=== PATIENT | male | born 1950 | race Caucasian/White ===

== ENCOUNTER 2020-03-17 07:55 | Day surgery (SDC) | payer OTHER, MEDICARE ==
[~2020-03-17 07:55] MED LIST: Lactated Ringers 1,000 ML IV SCH; Lidocaine 1%/Sod Bicarbonate in NS 8.4% 1 ML Syringe IDERM PRN; Sodium Chloride 0.9% 10 ML Syringe FLUSH PRN
[2020-03-17] MEDS ORDERED: Propofol 200 MG/20 ML SDV ONE ×3 (08:26→11:00)
[2020-03-17] MEDS ORDERED: fentaNYL 100 MCG/2 ML SDV ONE (08:27)
--- NOTE | 2020-03-17 08:34 | PCM.PREANE ---
Preanesthetic Assessment - Procedure Proposed Procedure: EGD/Colonoscopy/skin tag - Anesthesia/Transfusion/Family Hx Anesthesia History: Prior Anesthesia Without Reaction Family History of Anesthesia Reaction: No Transfusion History: Prior Transfusion Without Reaction - Review of Systems General: No Symptoms Pulmonary: No Symptoms Cardiovascular: Dyspnea on Exertion Gastrointestinal: No Symptoms Neurological: Numbness (right hand fingers) Other: Reports: Easy Bruising, Diabetes (this am 98 @ 0722) - Physical Assessment NPO Status Date: 03/16/20 NPO Status Time: 00:00 Height: 1.7 m Weight: 126 kg ASA Class: 3 Mental Status: Alert & Oriented x3 Airway Class: Mallampati = 2 Dentition: Reports: [place]) Thyro-Mental Finger Breadths: 2 Mouth Opening Finger Breadths: 2 ROM/Head Extension: Limited/Partial ("a little sore") Lungs: Clear to Auscultation, Normal Respiratory Effort Cardiovascular: Regular Rate, Regular Rhythm - Lab Values: Laboratory Last Values SARS Virus RNA (PCR) Negative (NEGATIVE) 03/14/20 13:00 - Imaging/EKG Impressions: EKG SR Rate 95 PVCs - Allergies Allergies/Adverse Reactions: Allergies Allergy/AdvReac Type Severity Reaction Status Date / Time amoxicillin [From Augmentin] Allergy Hives Verified 03/14/20 16:27 aspirin Allergy Other Verified 03/14/20 16:27 clavulanic acid Allergy Hives Verified 03/14/20 16:27 [From Augmentin] lisinopril Allergy Rash Verified 03/14/20 16:27 losartan Allergy Rash Verified 03/14/20 16:27 - Blood Blood Available: No Product(s) Available: None - Anesthesia Plan Pre-Op Medication Ordered: Beta Doreen Beta Doreen: Carvedilol Med Last Dose Date: 03/17/20 Med Last Dose Time: 07:22 - Acknowledgements Anesthesia Type Planned: MAC Pt an Appropriate Candidate for the Planned Anesthesia: Yes Alternatives and Risks of Anesthesia Discussed w Pt/Guardian: Yes Pt/Guardian Understands and Agrees with Anesthesia Plan: Yes PreAnesthesia Questionnaire HEENT History: Reports: Impaired Vision Cardiovascular History: Reports: High Cholesterol, Hypertension Respiratory History: Reports: Asthma Gastrointestinal History: Reports: Diverticulosis Musculoskeletal History: Reports: Arthritis Endocrine/Metabolic History: Reports: Diabetes, Type II - Infectious Disease History Infectious Disease History: Reports: None - Past Surgical History HEENT Surgical History: Reports: Tonsillectomy Other HEENT Surgeries/Procedures: Deviated septum repair Cardiovascular Surgical History: Reports: Coronary Artery Bypass Other Cardiovascular Surgeries/Procedures: Triple bypass GI Surgical History: Reports: Colonoscopy Musculoskeletal Surgical History: Reports: Knee Replacement - SUBSTANCE USE Smoking Status *Q: Never Smoker Tobacco Use Within Last Twelve Months: No Second Hand Smoke Exposure: No Days Per Week of Alcohol Use: 4 Number of Drinks Per Day: 3 Total Drinks Per Week: 12 Recreational Drug Use History: No - HOME MEDS Home Medications: Home Meds Cetirizine [ZyrTEC] 10 mg PO DAILY 07/10/18 [History] Cholecalciferol (Vitamin D3) [Vitamin D3] 1,000 units PO DAILY 07/10/18 [History ] Cyanocobalamin (Vitamin B12) [Vitamin B12] 1,000 mcg PO DAILY 07/10/18 [History] Doxazosin Mesylate [Cardura] 2 mg PO DAILY 07/10/18 [History] EPINEPHrine [Epipen] 0.3 mg IM ASDIRECTED PRN 07/10/18 [History] Fluticasone Propion/Salmeterol [Advair 250-50 Diskus] 1 inh IH BID 07/10/18 [ History] Insulin Aspart [NovoLOG] 4 - 15 units SQ QIDACANDBED 07/10/18 [History] Insulin Glarg,Human.Rec.Analog [Lantus] 32 units SQ QAM 07/10/18 [History] allopurinoL [Zyloprim] 50 mg PO DAILY 07/10/18 [History] atorvaSTATin Calcium [Atorvastatin Calcium] 80 mg PO DAILY 07/10/18 [History] hydrOXYzine pamoate [Hydroxyzine Pamoate] 150 mg PO QPM 07/10/18 [History] hydroCHLOROthiazide [Microzide] 25 mg PO DAILY 05/22/19 [History] Albuterol [Proair HFA] 2 puff INH Q4H PRN 03/14/20 [History] Clopidogrel Bisulfate [Plavix] 75 mg PO DAILY 03/14/20 [History] Famotidine [Pepcid] 40 mg PO DAILY 03/14/20 [History] Ferrous Sulfate [Iron] 325 mg PO DAILY 03/14/20 [History] Fluticasone Propionate [Flonase] 1 dose NASBOTH DAILY 03/14/20 [History] Furosemide [Lasix] 40 mg PO DAILY 03/14/20 [History] Ketotifen [Ketotifen 0.025% Ophth Soln] 1 drop EYEBOTH DAILY 03/14/20 [History] Liraglutide [Victoza 2-Micheal] 1.8 mg SQ DAILY 03/14/20 [History] Magnesium Oxide 400 mg PO BID 03/14/20 [History] Potassium Chloride [Klor-Con M20] 20 meq PO DAILY 03/14/20 [History] carvediloL [Coreg] 37.5 mg PO BID 03/14/20 [History] - CURRENT (IN HOUSE) MEDS Current Meds: Current Medications Lactated Ringer's (Ringers, Lactated) 1,000 mls @ 125 mls/hr IV ASDIRECTED MATHEUS Stop: 03/17/20 23:00 Lidocaine/Sodium Bicarbonate (Buffered Lidocaine 1% In Ns 8.4%) 0.25 ml IDERM ONETIME PRN PRN Reason: Prior to IV Start Stop: 03/17/20 18:00 Sodium Chloride (Saline Flush) 10 ml FLUSH ASDIRECTED PRN PRN Reason: Keep Vein Open Stop: 03/17/20 18:00
[2020-03-17] MEDS ORDERED: Albuterol 0.083% 2.5 MG/3 ML Neb Soln NEB ONE (08:40)
[2020-03-17] MEDS ORDERED: Midazolam 1 MG/ML 2 ML SDV ONE (08:56)
[2020-03-17] MEDS ORDERED: Bacitracin Oint 15 GM Tube ONE (09:02)
[2020-03-17] MEDS ORDERED: Lidocaine 1% with EPINEPHrine 1:100,000 20 ML MDV ONE (09:02)
[2020-03-17] MEDS ORDERED: Lactated Ringers 1,000 ML ONE (10:32)
--- NOTE | 2020-03-17 11:41 | PCM.OPNOTE ---
- General Post-Op/Procedure Note Date of Surgery/Procedure: 03/17/20 Operative Procedure(s): EGD and colonoscopy Findings: 1. Right leg skin lesion 2. Gastritis 3. Antral polyp 4. Irregular GE junction 5. Ascending colon polyps x 6 6. Transverse colon polyps x4 7. Rectal polyp x2 Pre Op Diagnosis: change in bowel habits, intermittent abdominal pain, melena Post-Op Diagnosis: same Anesthesia Technique: MAC Primary Surgeon: Key Johnson Anesthesia Provider: Elodia Lopez Pathology: 1. Gastric antrum biopsy 2. Antrum polyp biopsy 3. GE junction biopsy 4. Right leg skin lesion 5. Ascending colon polyp x6 6. Transverse colon polyp x 4 7. Rectal polyp x2 Fluid Replacement, Intraop: 1,500 Output, Urine Amount: 0 EBL in mLs: 3 Complications: none apparent Condition: Good
--- NOTE | 2020-03-17 11:43 | PCM.PRNOTE ---
- Free Text/Narrative Note: Operative Report Date of Procedure: March 17, 2020 Pre Op Diagnosis: change in bowel habits, intermittent abdominal pain melena, pigmented skin lesion on right knee Post-Op Diagnosis: Same Operative Procedures: 1. Excision of right leg skin lesion 2. EGD with biopsy 3. Colonoscopy to the cecum with biopsy Primary Surgeon: Key Johnson MD Anesthesia Provider: Elodia Lopez CRNA Anesthesia Technique: MAC IV Fluid Replacement, Intraop: 1500 cc crystalloid Output, Urine Amount: 0cc EBL in mLs: 3cc Findings: 1. Right leg skin lesion 2. Gastritis 3. Antral polyp 4. Irregular GE junction 5. Ascending colon polyps x 6 6. Transverse colon polyps x4 7. Rectal polyp x2 Specimens: 1. Right leg skin lesion 2. Gastric antrum biopsies 3. Antral polyp biopsies 4. GE junction biopsies 5. Ascending colon polyps x 6 6. Transverse colon polyps x4 7. Rectal polyp x2 Drain/Tubes: None Indication: The patient is a 69-year-old gentleman who presented to the clinic with need for colonoscopy and EGD. The patient reported symptoms of melena, intermittent abdominal pain, and change in bowel habits. The patient also had a suspicious pigmented lesion on the right knee. The patient was consented for a diagnostic EGD and colonoscopy with excision of the right lower leg skin lesion. Risks of bleeding, and perforation were discussed, and the patient agreed to the risks and wished to proceed. Description of the procedure: The patient was taken back to the endoscopy suite, and placed in supine position. The patient was sedated with MAC anesthesia. The right knee skin lesion was then prepped and draped in standard surgical fashion. A surgical timeout was performed. We began by marking the incision which measured 3.9 x 1.3 cm. The mass was an approximate 5 mm nodular mass with an ellipse of normal -appearing skin. The skin was then anesthetized using 1% lidocaine with epinephrine. The skin was excised containing the mass and again measured 3.9 x 1.3 cm. This was marked and passed off for pathology. The skin was reapproximated using deep dermal 3-0 Vicryl sutures and overlying interrupted 3- 0 nylon sutures. Bacitracin and sterile dressing were applied. He was then turned in the left lateral decubitus position. A bite block was placed. The Olympus video endoscope was inserted into the oropharynx and guided under direct vision into the esophagus, stomach, and duodenum. The duodenal bulb and second portion of the duodenum were unremarkable. The gastric antrum was inspected and cold biopsy forceps were used to take tissue samples for H. pylori. There was evidence of gastritis. The patient also had a polyp that measured approximately 6 mm. This was in the antrum. A hot snare was used to transected at its base. The base of the polyp appeared very thick. Once the hot snare was passed through, the polyp did not want to come off of the sidewall of the neck. Overlying biopsies were taken of the polyp using cold biopsy forceps. The scope was withdrawn to the stomach and retroflexed. There was no increased fluid, food or secretions in the upper gastrointestinal tract. No erosions or ulcers were noted. The scope was withdrawn to the esophagus. Possible Barretts esophagus changes were noted with a tongue of salmon-colored mucosa and squamous islands. Biopsies were taken in 4 quadrants using a cold biopsy forceps. The endoscope was then withdrawn. Next, anorectal examination was performed. No lesions, masses or hemorrhoids were noted externally or on palpation. The scope was placed into the rectum and advanced to cecum. Upon reaching the cecum, and the patients cecum was entered. There was moderate tortuosity of the colon with significant looping which required addition of manual abdominal pressure. The ileocecal valve was well visualized and the appendiceal orifice identified. At this point, the scope was slowly withdrawn, paying attention to the mucosa. The patient had adequate bowel prep, 80-85% of the mucosa was visible. A 4 mm polyp was noted in the ascending colon and was using a cold snare. Next there was a 8 mm polyp in the ascending colon removed using hot snare and cold jumbo biopsy forceps. Near this area there was an area of approximately 4 polyps in close proximity. 1 of these was a 3 mm semi-pedunculated polyp which was removed using a cold snare. An additional 1 cm sessile polyp was removed using a hot snare. A 2 cm sessile polyp was on a nearby fold. This was partially removed in 2 pieces using a hot snare. Only 1 piece was retrieved. The third polyp in this area measured about 2cm. A hot snare was used to remove a large portion of this polyp. This resected tissue was retrieved. The muscularis layer of the colon was visible under the biopsy sites. The remaining tissue was left to be retrieved at a later date. The area was tattooed with 3 cc of [place] ink. There were then 4 transverse colon polyps measuring 2 to 3 mm each, these were flat and removed with a jumbo cold biopsy forceps. In the rectum there were an additional 2 polyps: one measuring 3 mm and flat and the other measuring 4 mm and flat. These were removed using cold biopsy forceps. The scope was retroflexed and some hemorrhoidal tissue was noted. The scope was placed back in the lumen and excess air was aspirated. The scope was removed. The patient tolerated the procedure very well. Complications: None apparent Condition: The patient was transported to PACU in stable condition. Key Johnson MD General Surgery
--- NOTE | 2020-03-17 11:44 | PCM48HPAN ---
Post Anesthesia Note - EVALUATION WITHIN 48HRS OF ANESTHETIC Vital Signs in Normal Range: Yes Patient Participated in Evaluation: Yes Respiratory Function Stable: Yes Airway Patent: Yes Cardiovascular Function Stable: Yes Hydration Status Stable: Yes Pain Control Satisfactory: Yes Nausea and Vomiting Control Satisfactory: Yes Mental Status Recovered: Yes Vital Signs: Last Vital Signs Temp 36.8 C 03/17/20 08:00 Pulse 82 03/17/20 08:00 Resp 17 03/17/20 08:00 BP 122/65 03/17/20 08:00 Pulse Ox 98 03/17/20 08:54
== END 2020-03-17 12:50 | disposition home or self-care (01) ==
LOC: JD.SDS 07:55
PROVIDERS: ATTEND Surgery
DX: D12.2 Benign neoplasm of ascending colon (principal); D12.3 Benign neoplasm of transverse colon; D12.8 Benign neoplasm of rectum; K29.50 Unspecified chronic gastritis without bleeding; D23.71 Other benign neoplasm of skin of right lower limb, including hip; K31.7 Polyp of stomach and duodenum; B96.81 Helicobacter pylori [H. pylori] as the cause of diseases classified elsewhere; K20.9 Esophagitis, unspecified; K31.89 Other diseases of stomach and duodenum; Q43.8 Other specified congenital malformations of intestine; J45.909 Unspecified asthma, uncomplicated; E11.9 Type 2 diabetes mellitus without complications; E78.5 Hyperlipidemia, unspecified; E78.00 Pure hypercholesterolemia, unspecified; I10 Essential (primary) hypertension; Z88.0 Allergy status to penicillin; Z88.8 Allergy status to other drugs, medicaments and biological substances; Z88.6 Allergy status to analgesic agent; Z87.891 Personal history of nicotine dependence; Z79.899 Other long term (current) drug therapy; Z79.4 Long term (current) use of insulin
CPT/HCPCS: 11400; 12032; 43239; 43251; 45380; 45385; 87635; 93005; 94640; A9270; J2250; J2704; J3010; J7120; 00813; U0002